=== PATIENT | female | born 1995 | race Caucasian/White ===

== ENCOUNTER 2019-07-25 20:06 | Emergency (ER) | payer OTHER ==
--- NOTE | 2019-07-25 20:56 | EDM.PDOC ---
ED HPI GENERAL MEDICAL PROBLEM - General Chief Complaint: General Stated Complaint: CHILLS,SHAKY, BLOOD SUGARS LOW Time Seen by Provider: 07/25/19 20:30 Source of Information: Reports: Patient History Limitations: Reports: No Limitations - History of Present Illness INITIAL COMMENTS - FREE TEXT/NARRATIVE: This is a 23-year-old female with history of type 2 diabetes managed on insulin who presents with concerns of sunburn and shaking chills. She reports that she was outside sitting at the pretty all day today. 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 She got home this evening and noticed worsening sunburn. She was laying on the couch and felt fatigued, had some shaking chills. She checked her blood glucose with her continuous monitor noted to be 65. She since this time ate carbs and noted that it was [address] to the ER. She has been down titrating her Lantus over the last few weeks, last week went down to 28 units daily. She notes her blood sugars are typically in the mid 100s. - Related Data Allergies Allergy/AdvReac Type Severity Reaction Status Date / Time No Known Allergies Allergy Verified 07/25/19 20:22 Home Meds: Home Meds FLUoxetine HCl [Fluoxetine HCl] 1 tab PO DAILY 07/25/19 [History] Insulin Glarg,Human.Rec.Analog [Lantus Solostar] 28 unit SQ DAILY 07/25/19 [ History] Ozempic 0.5 mg INJECT WEEKLY 07/25/19 [History] hydrOXYzine HCL [hydrOXYzine] 2 tab PO DAILY 07/25/19 [History] metFORMIN [Glucophage] 2 tab PO BID 07/25/19 [History] traZODone HCl [Trazodone HCl] 1 tab PO BEDTIME 07/25/19 [History] Past Medical History Endocrine/Metabolic History: Reports: Diabetes, Type II Social & Family History - Tobacco Use Smoking Status *Q: Never Smoker ED ROS GENERAL - Review of Systems Review Of Systems: See Below Constitutional: Reports: Chills, Weakness HEENT: Reports: No Symptoms Respiratory: Reports: No Symptoms Cardiovascular: Reports: No Symptoms Endocrine: Reports: No Symptoms GI/Abdominal: Reports: No Symptoms : Reports: No Symptoms Musculoskeletal: Reports: No Symptoms Skin: Reports: Erythema Neurological: Reports: No Symptoms Psychiatric: Reports: No Symptoms Hematologic/Lymphatic: Reports: No Symptoms Immunologic: Reports: No Symptoms ED EXAM, GENERAL - Physical Exam Exam: See Below Exam Limited By: No Limitations General Appearance: Alert, No Apparent Distress Ears: Normal External Exam Nose: Normal Inspection Throat/Mouth: Normal Inspection Head: Atraumatic, Normocephalic Neck: Normal Inspection Respiratory/Chest: No Respiratory Distress Cardiovascular: Regular Rate, Rhythm GI/Abdominal: Soft, Non-Tender Back Exam: Normal Inspection Extremities: Normal Inspection Neurological: Alert, Oriented Psychiatric: Normal Affect, Normal Mood Skin Exam: Warm, Dry, Erythema (diffuse erythema with sparing under clothing line) Course - Vital Signs Last Recorded V/S: Last Vital Signs Temp 37.2 C 07/25/19 20:32 Pulse 104 H 07/25/19 20:32 Resp 16 07/25/19 20:32 BP 148/66 H 07/25/19 20:32 Pulse Ox 98 07/25/19 20:32 - Re-Assessments/Exams Free Text/Narrative Re-Assessment/Exam: This is a 23 yo with hx of type 2 DM managed on insulin who presents with concerns of sunburn, low glucose Has diffuse sunburn noted on exam. She had an isolated BG reading of 65, not clear if she was actually symptomatic from this. Most recently 130 on her monitor. We will check a POC glucose here. If remains stable will be on the safe side and decrease her lantus to 14 units (1/2 dose) and she can call her real estate financial analyst for guidance in the AM. Symptomatic cares for the sunburn. 07/25/19 21:03 Departure - Departure Time of Disposition: 21:05 Disposition: Home, Self-Care 01 Clinical Impression: Sunburn Diabetes mellitus Qualifiers: Diabetes mellitus type: type 2 Diabetes mellitus chcf insulin use: with chcf use Diabetes mellitus complication status: without complication Qualified Code(s): E11.9 - Type 2 diabetes mellitus without complications; Z79.4 - buttermaker (current) use of insulin - Discharge Information Instructions: Insulin Treatment for Diabetes Mellitus, Tips for Eating Away From Home If You Have Diabetes, Sunburn, Adult, [id number] Referrals: PCP,None [Primary Care Provider] - Additional Instructions: Please contact your real estate financial analyst tomorrow to discuss your insulin dosing. Sepsis Event Note (ED) - Evaluation Sepsis Screening Result: No Definite Risk - Focused Exam Vital Signs: Vital Signs Temp Pulse Resp BP Pulse Ox 07/25/19 20:32 37.2 C 104 H 16 148/66 H 98
== END 2019-07-25 21:24 | disposition home or self-care (01) ==
LOC: JP.ED 20:06
DX: L55.0 Sunburn of first degree (principal); E11.9 Type 2 diabetes mellitus without complications; Z79.4 Long term (current) use of insulin; Z79.899 Other long term (current) drug therapy
CPT/HCPCS: 82962; 99284